=== PATIENT | female | born 1960 | race Caucasian/White ===

== ENCOUNTER 2017-10-28 08:36 | Emergency (ER) | payer BC, OTHER ==
[~2017-10-28] VITALS: Ht 160 cm; Wt 90.7 kg
[~2017-10-28 08:36] MED LIST: APPLE CIDER VI300 MG PO; ARMOUR THYROID60 MG PO; B-12 PO; BIOTIN300 MCG PO; CALCIUM 500+D1 EACH PO; LEVALBUTEROL INH; METOPROLOL PO; MONTELUKAST SOD10 MG PO; NEXIUM40 MG PO; PREDNISONE10 MG PO; SEROQUEL PO; SIMVASTATIN10 MG PO; SPIRIVA; SPIRIVA18 MCG INH; SYMBICORT 16010.2 GM; SYMBICORT 16010.2 GM INH; SYMBICORT PO; TURMERIC500 MG PO; XOPENEX PO
[2017-10-28] MEDS ORDERED: SODIUM CHLORIDE 0.9% 1000ML 1,000 ML IV STA (08:44)
[2017-10-28 09:11] LABS: BASOPHILS % 0.2 % (0.0-1.0); EOSINOPHILS # (AUTO) 0.1 (0.0-0.4); EOSINOPHILS % 0.7 % (0.0-6.0); HEMATOCRIT 46.4 % (34.2-44.1); HEMOGLOBIN 15.2 g/dL (12.0-16.0); LYMPHOCYTES # (AUTO) 2.7 (1.0-3.2); LYMPHOCYTES % 20.6 % (18.0-39.1); MEAN CORPUSCULAR HGB CONC 32.8 g/dL (31-35); MEAN CORPUSCULAR VOLUME 94.5 fL (81-99); MONOCYTES # (AUTO) 0.7 (0.2-0.8); MONOCYTES % 5.5 % (4.4-11.3); NEUTROPHILS # (AUTO) 9.5 (2.1-6.9); NEUTROPHILS % 72.6 % (38.7-80.0); PLATELET COUNT 297 x10e3/uL (140-360); RED BLOOD COUNT 4.91 x10e6/uL (3.6-5.1); RED CELL DISTRIBUTION WIDTH 12.9 % (11.7-14.4)
[2017-10-28] MEDS ORDERED: FAMOTIDINE 20 MG/2 ML VIAL IV ONE (09:15)
[2017-10-28 09:28] LABS: ALANINE AMINOTRANSFERASE 22 IU/L (0-55); ALBUMIN 3.8 g/dL (3.5-5.0); ALKALINE PHOSPHATASE 74 IU/L (40-150); ANION GAP 15.6 mmol/L (8-16); BLOOD UREA NITROGEN 6 mg/dL (7-26); BUN/CREATININE RATIO 8 (6-25); CALCIUM 9.3 mg/dL (8.4-10.2); CARBON DIOXIDE 25 mmol/L (22-29); CHLORIDE 103 mmol/L (98-107); EST GLOMERULAR FILTRATION RATE > 60 ML/MIN (60-); GLUCOSE 119 mg/dL (74-118); POTASSIUM 3.6 mmol/L (3.5-5.1); SODIUM 140 mmol/L (136-145)
[2017-10-28] MEDS ORDERED: NEXIUM40 MG PO (09:47)
[2017-10-28 10:35] VITALS: BP 103/69
[2017-10-28] MEDS ORDERED: PANTOPRAZOLE SO40 MG PO (13:12)
[2017-10-28] MEDS ORDERED: TRELEGY INH (13:15)
[2017-10-28] MEDS ORDERED: Pro Air INH (13:20)
== END 2017-10-28 10:33 | disposition home or self-care (01) ==
LOC: ER 08:36
DX: K62.5 Hemorrhage of anus and rectum (principal); K92.1 Melena; R10.9 Unspecified abdominal pain
CPT/HCPCS: 36415; 80053; 85025; 86850; 86900; 99283; J7030

== ENCOUNTER → 2017-10-29 | Day surgery (SDC) | payer BC ==
[~2017-10-29] MED LIST changes: +FENTANYL CITRATE/PF 100MCG/2 ML INJ ONE; +HYOSCYAMINE SULFATE 0.5 MG/ML AMP ONE; +LIDOCAINE HCL 2% LOCAL INJ 5 ML SDV VIAL INJ ONE; +METOCLOPRAMIDE HCL 10 MG/2ML VIAL ONE; +MIDAZOLAM HCL 2 MG/2 ML VIAL ONE; +PANTOPRAZOLE SO40 MG PO; +PROPOFOL IV EMULSION 10 MG/ML 50 ML VIAL ONE; +Pro Air INH; +TRELEGY INH
[2017-10-29 18:03] LABS: WBC,FECAL (FECAL LACTOFERRIN) POSITIVE (NEGATIVE)
--- NOTE | 2017-10-29 18:35 | Operative Report ---
DATE OF PROCEDURE: October 29, 2017 REFERRING PHYSICIAN: Dr. Rosita Tripp. PROCEDURES PERFORMED: 1. Esophagogastroduodenoscopy with biopsies and esophageal brushings. 2. Colonoscopy with biopsies and polypectomy. INDICATIONS FOR ESOPHAGOGASTRODUODENOSCOPY: Heartburn indigestion, history of melena. INDICATIONS FOR COLONOSCOPY: Crampy lower abdominal pain, rectal bleeding. MEDICATION: Patient was done under MAC. Please see anesthesiologist's note. PROCEDURE: With the patient in the left lateral decubitus position, the flexible fiberoptic Olympus gastroscope was introduced into the esophagus under direct visualization without any difficulty. Some scattered whitish plaques were noted in the esophagus, and those were brushed and sent to stain for leonor. A minute tongue of velvety red mucosa was noted to extend proximally from the GE junction, and that was biopsied to rule out Allen's. The scope was then advanced with ease into the stomach, traversing a small sliding hiatal hernia. Mucosa overlying the antrum and the body revealed some patchy erythema and low-grade to moderate edema, and biopsies were obtained and sent to stain for H. pylori. Pylorus appeared to be of normal contour and shape, was intubated with ease, and the scope was advanced all the way to the 2nd portion of the duodenum. The scope was then withdrawn slowly. Mucosa overlying the proximal 2nd portion and the duodenal bulb appeared to be within normal limits. The scope was then withdrawn back into the stomach and retroflexed, and the mucosa overlying the fundus and the cardia appeared to be within normal limits. The scope was then straightened out. The stomach was decompressed. The scope was subsequently withdrawn. Patient tolerated procedure well. IMPRESSION: 1. Rule out leonor esophagitis. 2. Rule out Allen's esophagus. 3. Small sliding hiatal hernia. 4. Gastritis biopsied. Biopsies sent to stain for H. pylori. PLAN: Follow up histology. Initiate Protonix 40 mg 1 p.o. q.a.m. a.c. Patient was then turned around and after adequate lubrication of the anal canal, a flexible fiberoptic Olympus colonoscope was inserted into the rectum with ease and advanced all the way to the cecum. It was then withdrawn slowly. Whatever was visualized of the mucosa overlying the cecum, ascending colon, transverse colon grossly appeared to be within normal limits. The distal descending and the sigmoid were diffusely ulcerated, and biopsies were obtained. One polyp was snared from the sigmoid colon. The rectum appeared to be within normal limits. The scope was then retroflexed into the distal rectum and small internal hemorrhoids were noted, none of which was actively bleeding. The scope was then straightened out. The rectosigmoid area as well as the distal rectal area were decompressed. The scope was subsequently withdrawn after securing an adequate stool specimen that was sent for the appropriate stool studies. Patient tolerated the procedure well. IMPRESSION: 1. Rule out ischemic colitis. 2. Sigmoid colon polyp snared. 3. Internal hemorrhoids, none actively bleeding. PLAN: Follow up histology. Follow up stool studies. Start Bentyl 10 mg one p.o. t.i.d. and VSL#3 one p.o. daily. Patient will probably need a repeat colonoscopy in 8 to 12 weeks to document resolution and healing of the ischemic colitis. Job#: [id number] EV cc:ROSITA TRIPP DO
[2017-10-30 14:53] LABS: C DIFFICILE TOXIN A&B AMP PROB NEGATIVE (NEGATIVE)
== END | disposition home or self-care (01) ==
LOC: OR 13:30
PROVIDERS: ATTEND Internal Medicine Gastroenterology
DX: K63.5 Polyp of colon (principal); K29.50 Unspecified chronic gastritis without bleeding; B37.81 Candidal esophagitis; K21.0 Gastro-esophageal reflux disease with esophagitis; K52.89 Other specified noninfective gastroenteritis and colitis; K44.9 Diaphragmatic hernia without obstruction or gangrene; K59.00 Constipation, unspecified; K64.8 Other hemorrhoids; I10 Essential (primary) hypertension; N20.0 Calculus of kidney; E78.00 Pure hypercholesterolemia, unspecified; J44.9 Chronic obstructive pulmonary disease, unspecified; E03.9 Hypothyroidism, unspecified; F17.210 Nicotine dependence, cigarettes, uncomplicated; Z01.810 Encounter for preprocedural cardiovascular examination; Z68.35 Body mass index [BMI] 35.0-35.9, adult; Z85.828 Personal history of other malignant neoplasm of skin; Z80.0 Family history of malignant neoplasm of digestive organs
CPT/HCPCS: 43239; 45380; 45385; 83630; 83993; 87045; 87177; 87328; 87493; 93005; J1980; J2001; J2250; J2765; 43235

== ENCOUNTER → 2018-05-17 | Outpatient (CLI) | payer BC ==
[~2018-05-17] MED LIST changes: -FENTANYL CITRATE/PF 100MCG/2 ML INJ ONE; -HYOSCYAMINE SULFATE 0.5 MG/ML AMP ONE; -LIDOCAINE HCL 2% LOCAL INJ 5 ML SDV VIAL INJ ONE; -METOCLOPRAMIDE HCL 10 MG/2ML VIAL ONE; -MIDAZOLAM HCL 2 MG/2 ML VIAL ONE; -PROPOFOL IV EMULSION 10 MG/ML 50 ML VIAL ONE
--- NOTE | 2018-05-17 14:14 | Diagnostic Imaging Report ---
EXAMINATION: Renal ultrasound. CLINICAL HISTORY :Kidney stones COMPARISON: <None available.> TECHNIQUE: Grayscale and color Doppler evaluation of the kidneys and bladder was performed in transverse and longitudinal planes. DISCUSSION: RIGHT KIDNEY: The right kidney measures 9.5 cm in length and shows echogenicity. No hydronephrosis, shadowing calculi or solid mass lesions. LEFT KIDNEY: The left kidney measures 10.3 cm in length and shows echogenicity. No hydronephrosis, shadowing calculi or solid mass lesions. BLADDER: Unremarkable. Right and left ureteral jets are identified. IMPRESSION: Unremarkable sonographic appearance of the kidneys. No sonographic evidence of nephrolithiasis per clinical query. Signed by: Dr. Kee Lucio M.D. on 05/17/2018 2:11 PM
== END ==
LOC: US 13:09
PROVIDERS: ATTEND Family Medicine
DX: Z87.442 Personal history of urinary calculi (principal)
CPT/HCPCS: 76770

== ENCOUNTER → 2021-11-21 | Day surgery (SDC) | payer BC ==
[~2021-11-21] MED LIST changes: +ACETAMINOPHEN325 M1 PO; +COMBIVENT RESPIM4 GM IH; +FENTANYL CITRATE/PF 100MCG/2 ML INJ ONE; +FORMULA PO; +GLUCAGON FOR INJ 1 MG VIAL ONE; +HYOSCYAMINE SULFATE 0.5 MG/ML INJ ONE; +LIDOCAINE HCL 2% LOCAL INJ 5 ML SDV VIAL INJ ONE; +LISINOPRIL10 MG PO; +METOCLOPRAMIDE HCL 10 MG/2ML VIAL ONE; +MIDAZOLAM HCL 2 MG/2 ML VIAL ONE; +PEPCID20 MG PO; +PHENYLEPHRINE HCL 1% 10 MG/ML VIAL ONE; +PROBIOTIC & AC1 EACH PO; +PROPOFOL IV EMULSION 10 MG/ML 20 ML VIAL ONE; +ZOLOFT100 MG PO; +[UNRECOGNIZED DRUG - REMARK] PO
[2021-11-21 08:23] LABS: BASOPHILS # (AUTO) 0.1 (0.0-0.1); BASOPHILS % 0.6 % (0.0-1.0); EOSINOPHILS # (AUTO) 0.1 (0.0-0.4); EOSINOPHILS % 1.5 % (0.0-6.0); HEMATOCRIT 45.9 % (34.2-44.1); HEMOGLOBIN 14.4 g/dL (12.0-16.0); LYMPHOCYTES # (AUTO) 2.3 (1.0-3.2); LYMPHOCYTES % 23.6 % (18.0-39.1); MEAN CORPUSCULAR HEMOGLOBIN 30.5 pg (28-32); MEAN CORPUSCULAR HGB CONC 31.4 g/dL (31-35); MEAN CORPUSCULAR VOLUME 97.2 fL (81-99); MONOCYTES # (AUTO) 0.6 (0.2-0.8); MONOCYTES % 6.4 % (4.4-11.3); NEUTROPHILS # (AUTO) 6.5 (2.1-6.9); NEUTROPHILS % 67.6 % (38.7-80.0); PLATELET COUNT 363 x10e3/uL (140-360); RED BLOOD COUNT 4.72 x10e6/uL (3.6-5.1); RED CELL DISTRIBUTION WIDTH 13.2 % (11.7-14.4)
[2021-11-21 11:00] VITALS: BP 127/75
== END | disposition home or self-care (01) ==
LOC: OR 07:44
PROVIDERS: ATTEND Internal Medicine Gastroenterology
DX: K29.00 Acute gastritis without bleeding (principal); D12.2 Benign neoplasm of ascending colon; K29.50 Unspecified chronic gastritis without bleeding; K20.90 Esophagitis, unspecified without bleeding; K21.9 Gastro-esophageal reflux disease without esophagitis; K44.9 Diaphragmatic hernia without obstruction or gangrene; K55.9 Vascular disorder of intestine, unspecified; K59.09 Other constipation; K64.8 Other hemorrhoids; Z71.3 Dietary counseling and surveillance; D64.9 Anemia, unspecified; I10 Essential (primary) hypertension; E78.5 Hyperlipidemia, unspecified; E03.9 Hypothyroidism, unspecified; J44.9 Chronic obstructive pulmonary disease, unspecified; M47.812 Spondylosis without myelopathy or radiculopathy, cervical region; R53.1 Weakness; M19.011 Primary osteoarthritis, right shoulder; M19.042 Primary osteoarthritis, left hand; M19.041 Primary osteoarthritis, right hand; F41.9 Anxiety disorder, unspecified; F32.A Depression, unspecified; F17.210 Nicotine dependence, cigarettes, uncomplicated; Z71.6 Tobacco abuse counseling; Z01.810 Encounter for preprocedural cardiovascular examination; Z79.899 Other long term (current) drug therapy; Z68.27 Body mass index [BMI] 27.0-27.9, adult; Z85.828 Personal history of other malignant neoplasm of skin; Z80.0 Family history of malignant neoplasm of digestive organs
CPT/HCPCS: 36415; 43239; 45380; 45385; 85025; 93005; C9113; J1610; J1980; J2001; J2250; J2370; J2704; J2765; J3010

== ENCOUNTER 2024-02-06 11:29 | Emergency (ER) | payer BC ==
[~2024-02-06] VITALS: Ht 157.5 cm; Wt 65.8 kg
[~2024-02-06 11:29] MED LIST changes: -FENTANYL CITRATE/PF 100MCG/2 ML INJ ONE; -GLUCAGON FOR INJ 1 MG VIAL ONE; -HYOSCYAMINE SULFATE 0.5 MG/ML INJ ONE; -LIDOCAINE HCL 2% LOCAL INJ 5 ML SDV VIAL INJ ONE; -METOCLOPRAMIDE HCL 10 MG/2ML VIAL ONE; -MIDAZOLAM HCL 2 MG/2 ML VIAL ONE; -PHENYLEPHRINE HCL 1% 10 MG/ML VIAL ONE; -PROPOFOL IV EMULSION 10 MG/ML 20 ML VIAL ONE
[2024-02-06] MEDS: DEXAMETHASONE SOD PHOS INJ 4 MG/ML SDV IV ONE (12:23)
[2024-02-06] MEDS: ALBUTEROL/IPRATROPIUM 3 ML NEB NEB ONE (12:25)
[2024-02-06] MEDS ORDERED: AZITHROMYCIN250 MG PO (12:57)
[2024-02-06] MEDS ORDERED: MONTELUKAST SOD10 MG PO (12:57)
[2024-02-06] MEDS ORDERED: NASACORT16.9 ML (12:57)
[2024-02-06] MEDS ORDERED: IPRAT-ALBUT 0.5-3 ML NEB (12:57)
[2024-02-06 13:31] VITALS: PULSE 70; RESP 17; TEMP 98.2
[2024-02-06 13:32] VITALS: BP 139/64; PULSE 71; RESP 17; O2SAT 95
== END 2024-02-06 13:31 | disposition home or self-care (01) ==
LOC: FSED 11:36
DX: R06.02 Shortness of breath (principal); J44.1 Chronic obstructive pulmonary disease with (acute) exacerbation; J30.9 Allergic rhinitis, unspecified; R91.8 Other nonspecific abnormal finding of lung field; F17.210 Nicotine dependence, cigarettes, uncomplicated; I10 Essential (primary) hypertension; E78.5 Hyperlipidemia, unspecified; Z85.828 Personal history of other malignant neoplasm of skin
CPT/HCPCS: 71250; 80053; 82553; 83880; 84484; 85025; 94760; 99284; J1100

== ENCOUNTER 2024-07-06 20:03 | Emergency (ER) | payer BC ==
[~2024-07-06] VITALS: Ht 157.5 cm; Wt 69.9 kg
[~2024-07-06 20:03] MED LIST changes: +AZITHROMYCIN250 MG PO; +IPRAT-ALBUT 0.5-3 ML NEB; +NASACORT16.9 ML
[2024-07-06 20:15] VITALS: PULSE 74; RESP 18; TEMP 98.8
[2024-07-06 21:19] VITALS: BP 145/68; PULSE 74; RESP 18; TEMP 98.8; O2SAT 95
== END 2024-07-06 21:19 | disposition home or self-care (01) ==
LOC: FSED 20:08
DX: R06.00 Dyspnea, unspecified (principal); J44.9 Chronic obstructive pulmonary disease, unspecified; R05.9 Cough, unspecified; I10 Essential (primary) hypertension; E78.5 Hyperlipidemia, unspecified; F41.9 Anxiety disorder, unspecified; Z85.828 Personal history of other malignant neoplasm of skin
CPT/HCPCS: 71046; 99282